=== PATIENT | female | born 1960 | race Caucasian/White ===

== ENCOUNTER 2022-08-12 20:40 | Emergency (ER) | payer BC, OTHER ==
[2022-08-12 21:12] VITALS: BP 106/77; PULSE 74; RESP 16; TEMP 97.4; BMI 23.9
== END 2022-08-12 22:05 | disposition home or self-care (01) ==
LOC: FER 20:40
DX: S52.592A Other fractures of lower end of left radius, initial encounter for closed fracture (principal); W19.XXXA Unspecified fall, initial encounter
CPT/HCPCS: 73090-TC-LT-FY; 73110-TC-LT-FY; 99283-25